=== PATIENT | female | born 1965 | race Two or more races ===

== ENCOUNTER 2022-06-07 16:34 | Emergency (ER) | payer OTHER ==
[~2022-06-07] VITALS: Ht 157.5 cm; Wt 70.3 kg
[2022-06-07] MEDS ORDERED: TOPROL XL25 M1 PO (16:53)
[2022-06-07] MEDS ORDERED: LEVOTHYROXINE25 MCG PO (16:53)
[2022-06-07] MEDS ORDERED: COZAAR25 MG PO (16:54)
== END 2022-06-07 19:07 | disposition home or self-care (01) ==
LOC: ER 16:34
DX: R51.9 Headache, unspecified (principal)